=== PATIENT | female | born 1960 | race Caucasian/White ===

== ENCOUNTER 2018-01-15 21:24 | Inpatient (IN) | payer BC ==
[2018-01-15] MEDS ORDERED: TORAdol 30 mg Injection IV ONE (22:03)
[2018-01-15] MEDS ORDERED: Zofran 4 MG/2 ML VIAL IV ONE (22:03)
[2018-01-15] MEDS ORDERED: Zofran 4 MG/2 ML VIAL ONE (22:08)
[2018-01-15] MEDS ORDERED: TORAdol 30 mg Injection ONE (22:08)
--- NOTE | 2018-01-15 22:09 | ERPHSYRPT ---
- History of Present Illness Time Seen by Provider: 01/15/18 22:00 Historian: patient Exam Limitations: no limitations Patient Subjective Stated Complaint: pt is alert and oriented. pt is ambulatory with steady gait. pt has been having abd pain since 01/11/18. pt states that it was just a general right sided ache at that time and has since gotten worse. bowel sounds present x4. abd is soft and tender to touch in the RUQ. pt states having some right sided flank pain. Triage Nursing Assessment: see above Physician History: 57 y/o female comes to the ER with complaints of epigastric and RUQ abdominal pain since Tuesday. Pt describes the pain as sharp, constant, 5/10 and pt has not taken any pain meds. Pt admits to dry heaving but no vomiting, fever, chills , constipation, diarrhea or urinary symptoms. Pt admits to low appetite. Pt has had her gall bladder taken out. Timing/Duration: day(s) Activities at Onset: none Quality: sharpness Abdominal Pain Onset Location: RUQ, epigastric Pain Radiation: no radiation Severity of Pain-Max: moderate Severity of Pain-Current: moderate Modifying Factors: Improves With: nothing Associated Symptoms: loss of appetite, nausea Previous symptoms: no prior history Allergies/Adverse Reactions: ibuprofen Allergy (Mild, Verified 01/30/13 15:19) Penicillins Allergy (Mild, Verified 01/30/13 15:19) Home Medications: Citalopram Hydrobromide 20 mg* [ceLEXa 20 MG] 20 mg PO DAILY 01/15/18 [ History] Omeprazole [Prilosec] 20 mg pe PO DAILY 01/15/18 [History] Simvastatin 20 mg PO DAILY 01/15/18 [History] Hx Tetanus, Diphtheria Vaccination/Date Given: Yes Hx Influenza Vaccination/Date Given: Yes Hx Pneumococcal Vaccination/Date Given: No Immunizations Up to Date: Yes - Review of Systems Constitutional: No Fever, No Chills Eyes: No Symptoms Ears, Nose, & Throat: No Symptoms Respiratory: No Cough, No Dyspnea Cardiac: No Chest Pain, No Edema, No Syncope Abdominal/Gastrointestinal: Abdominal Pain, Nausea, No Vomiting, No Diarrhea Genitourinary Symptoms: No Dysuria, No Frequency, No Hematuria Musculoskeletal: No Back Pain, No Neck Pain Skin: No Rash Neurological: No Dizziness, No Focal Weakness, No Sensory Changes Psychological: No Symptoms Endocrine: No Symptoms All Other Systems: Reviewed and Negative - Past Medical History Pertinent Past Medical History: Yes Neurological History: No Pertinent History ENT History: No Pertinent History Cardiac History: No Pertinent History Respiratory History: No Pertinent History Endocrine Medical History: No Pertinent History Musculoskeletal History: No Pertinent History GI Medical History: Pancreatitis History: No Pertinent History Psycho-Social History: Anxiety Female Reproductive Disorders: No Pertinent History Other Medical History: chronic back pain - Past Surgical History Past Surgical History: Yes Neuro Surgical History: No Pertinent History Cardiac: No Pertinent History Respiratory: No Pertinent History Gastrointestinal: Cholecystectomy Genitourinary: No Pertinent History Female Surgical History: Tubal Ligation Other Surgical History: sinus surgery - Social History Smoking Status: Current every day smoker How long have you smoked: 1 year Exposure to second hand smoke: No Drug Use: none Patient Lives Alone: No - Female History Hx Now: No - Nursing Vital Signs Nursing Vital Signs: Initial Vital Signs Temperature 99.5 F 01/15/18 21:25 Pulse Rate 81 01/15/18 21:25 Respiratory Rate 16 01/15/18 21:25 Blood Pressure 144/78 01/15/18 21:25 O2 Sat by Pulse Oximetry 98 01/15/18 21:25 Pain Scale Pain Intensity 5 - Physical Exam General Appearance: mild distress, alert Eye Exam: PERRL/EOMI, eyes nml inspection Ears, Nose, Throat Exam: normal ENT inspection, pharynx normal, moist mucous membranes Neck Exam: normal inspection, non-tender, supple, full range of motion Respiratory Exam: normal breath sounds, lungs clear, No respiratory distress Cardiovascular Exam: regular rate/rhythm, normal heart sounds Gastrointestinal/Abdomen Exam: soft, normal bowel sounds, tenderness, No mass Back Exam: normal inspection, normal range of motion, No CVA tenderness, No vertebral tenderness Extremity Exam: normal inspection, normal range of motion, pelvis stable Neurologic Exam: alert, oriented x 3, cooperative, normal mood/affect, nml cerebellar function, sensation nml, No motor deficits Skin Exam: normal color, warm, dry SpO2: 98 Oxygen Delivery: Room Air - Course Nursing assessment & vital signs reviewed: Yes Ordered Tests: Active Orders 24 hr Category Date Time Status IV Insertion STAT Care 01/15/18 22:03 Active NPO (ED) STAT Care 01/15/18 22:03 Active ABDOMEN AND PELVIS W CONTRAST [CT] Stat Exams 01/15/18 22:03 Taken AMYLASE Stat Lab 01/15/18 22:20 Completed BLOOD CULTURE Stat Lab 01/16/18 Ordered CBC W DIFF Stat Lab 01/15/18 22:20 Completed CMP Stat Lab 01/15/18 22:20 Completed LIPASE Stat Lab 01/15/18 22:20 Completed Lactic Acid Stat Lab 01/15/18 22:10 Completed UA W/RFX UR CULTURE Stat Lab 01/15/18 22:03 Uncollected Medication Summary Discontinued Medications Generic Name Dose Route Start Last Admin Trade Name Freq PRN Reason Stop Dose Admin Sodium Chloride 1,000 mls @ 999 mls/hr 01/15/18 22:54 01/15/18 23:03 Sodium Chloride 0.9% 1000 Ml IV 01/15/18 23:54 999 mls/hr .Q1H1M STA Administration Sodium Chloride Confirm 01/15/18 22:58 Sodium Chloride 0.9% 1000 Ml Administered 01/15/18 22:59 Dose 1,000 mls @ ud .ROUTE .STK-MED ONE Ketorolac Tromethamine 30 mg 01/15/18 22:03 01/15/18 22:17 Toradol 30 Mg Injection IV 01/15/18 22:04 30 mg STAT ONE Administration Ketorolac Tromethamine Confirm 01/15/18 22:08 Toradol 30 Mg Injection Administered 01/15/18 22:09 Dose 30 mg .ROUTE .STK-MED ONE Ondansetron HCl 4 mg 01/15/18 22:03 01/15/18 22:17 Zofran 4 Mg/2 Ml Vial IV 01/15/18 22:04 4 mg STAT ONE Administration Ondansetron HCl Confirm 01/15/18 22:08 Zofran 4 Mg/2 Ml Vial Administered 01/15/18 22:09 Dose 4 mg .ROUTE .STK-MED ONE Lab/Rad Data: Laboratory Result Diagrams 01/15/18 22:20 01/15/18 22:20 Laboratory Results 01/15/18 01/15/18 01/15/18 Range/Units 22:20 22:20 22:10 WBC 18.4 H (4.0-10.5) K/mm3 RBC 4.99 (4.1-5.4) M/mm3 Hgb 15.5 (12.0-16.0) gm/dl Hct 45.5 (35-47) % MCV 91.2 (78-100) fl MCH 31.1 (26-32) pg MCHC 34.1 (32-36) g/dl RDW 14.1 H (11.5-14.0) % Plt Count 255 (150-450) K/mm3 MPV 11.5 H (6-9.5) fl Gran % 78.1 H (36.0-66.0) % Eos # (Auto) 0.22 (0-0.5) Absolute Lymphs (auto) 2.59 (1.0-4.6) Absolute Monos (auto) 1.16 (0.0-1.3) Lymphocytes % 14.1 L (24.0-44.0) % Monocytes % 6.3 (0.0-12.0) % Eosinophils % 1.2 (0.00-5.0) % Basophils % 0.3 (0.0-0.4) % Absolute Granulocytes 14.33 H (1.4-6.9) Basophils # 0.06 (0-0.4) Sodium 139 (137-145) mmol/L Potassium 3.7 (3.5-5.1) mmol/L Chloride 105 (98-107) mmol/L Carbon Dioxide 23 (22-30) mmol/L Anion Gap 13.9 (5-15) MEQ/L BUN 6 L (7-17) mg/dL Creatinine 0.70 (0.52-1.04) mg/dL Estimated GFR > 60.0 ML/MIN Glucose 111 H (74-106) mg/dL Lactic Acid 0.8 (0.4-2.0) Calcium 9.3 (8.4-10.2) mg/dL Total Bilirubin 0.80 (0.2-1.3) mg/dL AST 21 (14-36) U/L ALT 24 (0-35) U/L Alkaline Phosphatase 113 (38-126) U/L Serum Total Protein 7.4 (6.3-8.2) g/dL Albumin 4.3 (3.5-5.0) g/dL Amylase 165 H (30-110) U/L Lipase 1060 H (23-300) U/L - Progress Progress: improved Progress Note: 01/16/18 00:31 The patient feels better after receiving NS fluids, zofran and toradol. The lipase is over [address] scan abd/pelvis shows findings consistent with acute pancreatitis as well as features of a possible colitis. There is an indistinct 1.9 cm area of low attenuation in the pancreatic head that will need further imaging to R/O malignancy. Pt has a white count of 18,000 and will receive a dose of zosyn. Pt has been accepted by Dr De Jesus for acute pancreatitis and colitis. - Departure Time of Disposition: 00:34 Departure Disposition: In-patient Admission Clinical Impression: Colitis Pancreatitis Qualifiers: Chronicity: acute Pancreatitis type: unspecified pancreatitis type Acute pancreatitis complication: unspecified Qualified Code(s): K85.90 - Acute pancreatitis without necrosis or infection, unspecified Condition: Fair Critical Care Time: No Referrals: SHAMEKA CARVALHO MD [Primary Care Provider] -
[2018-01-15 22:33] LABS: BASOPHIL % 0.3 % (0.0-0.4); Basophil (Absolute #) 0.06 (0-0.4); Eosinophil % 1.2 % (0.00-5.0); Eosinophil (Absolute #) 0.22 (0-0.5); Granulocyte Absolute (ANC) 14.33 (1.4-6.9); Granulocytes % 78.1 % (36.0-66.0); Hematocrit 45.5 % (35-47); Hemoglobin 15.5 gm/dl (12.0-16.0); Lymphocyte (Absolute #) 2.59 (1.0-4.6); Lymphocytes % 14.1 % (24.0-44.0); Mean Cell Volume 91.2 fl (78-100); Mean Corpuscular Hemoglobin 31.1 pg (26-32); Mean Corpuscular Hgb Concent. 34.1 g/dl (32-36); Mean Platelet Volume 11.5 fl (6-9.5); Monocyte (Absolute #) 1.16 (0.0-1.3); Monocytes % 6.3 % (0.0-12.0); Platelet Count 255 K/mm3 (150-450); Red Blood Count 4.99 M/mm3 (4.1-5.4); Red Cell Distribution Width 14.1 % (11.5-14.0); White Blood Count 18.4 K/mm3 (4.0-10.5)
[2018-01-15 22:47] LABS: ALBUMIN 4.3 g/dL (3.5-5.0); ALKALINE PHOSPHATASE 113 U/L (38-126); AMYLASE 165 U/L (30-110); ANION GAP 13.9 MEQ/L (5-15); BLOOD UREA NITROGEN 6 mg/dL (7-17); CHLORIDE 105 mmol/L (98-107); Calcium 9.3 mg/dL (8.4-10.2); Carbon Dioxide 23 mmol/L (22-30); Glucose 111 mg/dL (74-106); LIPASE 1060 U/L (23-300); Potassium 3.7 mmol/L (3.5-5.1); SGOT/AST 21 U/L (14-36); SGPT/ALT 24 U/L (0-35); SODIUM 139 mmol/L (137-145); Total Protein 7.4 g/dL (6.3-8.2)
[2018-01-15] MEDS ORDERED: Sodium Chloride 0.9% 1000 ML 1,000 ML IV STA (22:54)
[2018-01-15] MEDS ORDERED: Sodium Chloride 0.9% 1000 ML 1,000 ML ONE (22:58)
[2018-01-16] MEDS ORDERED: Zosyn 3.375GM/100 Ml D5W 3.375 GM/100 ML IVPB IV STA (00:30)
[2018-01-16] MEDS: Sodium Chloride 0.9% 1000 ML 1,000 ML IV SCH ×3 (01:23→23:08)
[2018-01-16 02:27] LABS: Appearance CLEAR (CLEAR); Bilirubin NEGATIVE (NEGATIVE); Blood NEGATIVE Ery/ul (0-5); Glucose NEGATIVE (NEGATIVE); Ketones NEGATIVE (NEGATIVE); Leukocyte Esterase NEGATIVE (NEGATIVE); Nitrite NEGATIVE (NEGATIVE); Protein,Urine Dip NEGATIVE (Negative); Specific Gravity 1.005 (1.005-1.025); Urobilinogen NORMAL mg/dL (0-1)
[2018-01-16] MEDS: MORPHINE SULFATE 4 MG INJ IV PRN ×6 (03:21→23:55)
[2018-01-16] MEDS: Zofran 4 MG/2 ML VIAL IV PRN ×2 (03:21→20:03)
[2018-01-16 06:36] LABS: BASOPHIL % 0.2 % (0.0-0.4); Basophil (Absolute #) 0.03 (0-0.4); Eosinophil % 1.4 % (0.00-5.0); Eosinophil (Absolute #) 0.25 (0-0.5); Hematocrit 41.4 % (35-47); Hemoglobin 13.7 gm/dl (12.0-16.0); Lymphocytes % 13.3 % (24.0-44.0); Mean Cell Volume 92.8 fl (78-100); Mean Corpuscular Hemoglobin 30.7 pg (26-32); Mean Corpuscular Hgb Concent. 33.1 g/dl (32-36); Mean Platelet Volume 12.1 fl (6-9.5); Monocyte (Absolute #) 1.29 (0.0-1.3); Monocytes % 7.1 % (0.0-12.0); Platelet Count 232 K/mm3 (150-450); Red Blood Count 4.46 M/mm3 (4.1-5.4); White Blood Count 18.1 K/mm3 (4.0-10.5)
[2018-01-16 06:43] LABS: ALBUMIN 3.6 g/dL (3.5-5.0); ALKALINE PHOSPHATASE 103 U/L (38-126); ANION GAP 12.1 MEQ/L (5-15); BLOOD UREA NITROGEN 6 mg/dL (7-17); CHLORIDE 107 mmol/L (98-107); Calcium 8.5 mg/dL (8.4-10.2); Carbon Dioxide 23 mmol/L (22-30); Creatinine 1 0.68 mg/dL (0.52-1.04); Glucose 113 mg/dL (74-106); Potassium 3.6 mmol/L (3.5-5.1); SGOT/AST 69 U/L (14-36); SGPT/ALT 35 U/L (0-35); SODIUM 139 mmol/L (137-145); Total Protein 6.3 g/dL (6.3-8.2)
[2018-01-16] MEDS: Zosyn 3.375GM/100 Ml D5W 3.375 GM/100 ML IVPB IV SCH ×4 (07:29→23:09)
[2018-01-16 08:19] LABS: AMYLASE 141 U/L (30-110); LIPASE 882 U/L (23-300)
--- NOTE | 2018-01-16 08:46 | PCM.HP ---
History of Present Illness - Chief Complaint Chief Complaint: acute pancreatitis, colitis History of Present Illness: is a 57 year old female who reports worsening right upper quad abd pain for the last 5 days, became sharp and severe yesterday. no vomiting, diarrhea, fever or constipation. feeling slightly better this morning, denies alcohol use, hx cholecystectomy in the past. - Review of Systems Constitutional: No Fever, No Chills Respiratory: No Cough, No Short Of Breath Cardiac: No Chest Pain, No Edema, No Syncope Abdominal/Gastrointestinal: Abdominal Pain, No Nausea, No Vomiting, No Diarrhea , No Constipation Genitourinary Symptoms: No Dysuria Skin: No Rash Medications & Allergies Home Medications: Home Medication List Citalopram Hydrobromide 20 mg* [ceLEXa 20 MG] 20 mg PO DAILY 01/15/18 [ History Confirmed 01/16/18] Omeprazole [Prilosec] 20 mg pe PO DAILY 01/15/18 [History Confirmed 01/16/18] Simvastatin 20 mg PO DAILY 01/15/18 [History Confirmed 01/16/18] Allergies/Adverse Reactions: Allergies Allergy/AdvReac Type Severity Reaction Status Date / Time ibuprofen Allergy Mild Verified 01/16/18 01:09 Penicillins Allergy Mild Rash Verified 01/16/18 06:28 - Past Medical History Past Medical History: Yes Neurological History: No Pertinent History ENT History: No Pertinent History Cardiac History: No Pertinent History Respiratory History: No Pertinent History Endocrine Medical History: No Pertinent History Musculoskelatal History: No Pertinent History GI Medical History: Pancreatitis History: No Pertinent History Pyscho-Social History: Anxiety Reproductive Disorders: No Pertinent History Comment: chronic back pain - Female History Are you now?: No - Past Surgical History Past Surgical History: Yes Neuro Surgical History: No Pertinent History Cardiac History: No Pertinent History Respiratory Surgery: No Pertinent History GI Surgical History: Cholecystectomy Genitourinary Surgical Hx: No Pertinent History Musculskeletal Surgical Hx: No Pertinent History Female Surgical History: Tubal Ligation Other Surgical History: sinus surgery - Social History Smoking Status: Current every day smoker How long have you smoked: 1 year Exposure to second hand smoke: No Alcohol: None Drug Use: none - Physical Exam Vital Signs: Vital Signs - 24 hr Temp Pulse Resp BP Pulse Ox 01/16/18 07:14 98.4 F 82 16 144/69 94 L 01/16/18 07:12 97.8 F 78 16 134/79 99 01/16/18 04:02 98.5 F 76 18 125/60 97 01/16/18 01:13 98.7 F 76 16 131/72 98 01/16/18 00:34 98 01/16/18 00:07 76 121/66 98 01/15/18 22:53 78 136/86 93 L 01/15/18 22:26 73 136/86 99 01/15/18 21:25 99.5 F 81 16 144/78 98 General Appearance: no apparent distress, alert Respiratory Exam: normal breath sounds, lungs clear, No respiratory distress Cardiovascular Exam: regular rate/rhythm, normal heart sounds, normal peripheral pulses Gastrointestinal/Abdomen Exam: soft, tenderness (epigastrium), No distention, No mass, No guarding Extremity Exam: normal inspection, normal range of motion, pelvis stable Skin Exam: normal color, warm, dry, No rash Results - Labs Lab/Micro Results: Lab Results-Last 24 Hours 01/15/18 01/15/18 01/15/18 Range/Units 01:00 22:10 22:20 WBC 18.4 H (4.0-10.5) K/mm3 RBC 4.99 (4.1-5.4) M/mm3 Hgb 15.5 (12.0-16.0) gm/dl Hct 45.5 (35-47) % MCV 91.2 (78-100) fl MCH 31.1 (26-32) pg MCHC 34.1 (32-36) g/dl RDW 14.1 H (11.5-14.0) % Plt Count 255 (150-450) K/mm3 MPV 11.5 H (6-9.5) fl Gran % 78.1 H (36.0-66.0) % Eos # (Auto) 0.22 (0-0.5) Absolute Lymphs (auto) 2.59 (1.0-4.6) Absolute Monos (auto) 1.16 (0.0-1.3) Lymphocytes % 14.1 L (24.0-44.0) % Monocytes % 6.3 (0.0-12.0) % Eosinophils % 1.2 (0.00-5.0) % Basophils % 0.3 (0.0-0.4) % Absolute Granulocytes 14.33 H (1.4-6.9) Basophils # 0.06 (0-0.4) Sodium (137-145) mmol/L Potassium (3.5-5.1) mmol/L Chloride (98-107) mmol/L Carbon Dioxide (22-30) mmol/L Anion Gap (5-15) MEQ/L BUN (7-17) mg/dL Creatinine (0.52-1.04) mg/dL Estimated GFR ML/MIN Glucose (74-106) mg/dL Lactic Acid 0.8 (0.4-2.0) Calcium (8.4-10.2) mg/dL Total Bilirubin (0.2-1.3) mg/dL AST (14-36) U/L ALT (0-35) U/L Alkaline Phosphatase (38-126) U/L Serum Total Protein (6.3-8.2) g/dL Albumin (3.5-5.0) g/dL Amylase (30-110) U/L Lipase (23-300) U/L Ur Collection Type CLEAN CATCH Urine Color YELLOW (YELLOW) Urine Appearance CLEAR (CLEAR) Urine pH 8.0 (5-6) Ur Specific [place] 1.005 (1.005-1.025) Urine Protein NEGATIVE (Negative) Urine Ketones NEGATIVE (NEGATIVE) Urine Blood NEGATIVE (0-5) Dave/ul Urine Nitrite NEGATIVE (NEGATIVE) Urine Bilirubin NEGATIVE (NEGATIVE) Urine Urobilinogen NORMAL (0-1) mg/dL Ur Leukocyte Esterase NEGATIVE (NEGATIVE) Urine Culture Reflexed NO (NO) Urine Glucose NEGATIVE (NEGATIVE) mg/dL Specimen Received 01/16/18 0100 01/15/18 01/16/18 01/16/18 Range/Units 22:20 05:00 05:37 WBC 18.1 H (4.0-10.5) K/mm3 RBC 4.46 (4.1-5.4) M/mm3 Hgb 13.7 (12.0-16.0) gm/dl Hct 41.4 (35-47) % MCV 92.8 (78-100) fl MCH 30.7 (26-32) pg MCHC 33.1 (32-36) g/dl RDW 14.0 (11.5-14.0) % Plt Count 232 (150-450) K/mm3 MPV 12.1 H (6-9.5) fl Gran % 78.0 H (36.0-66.0) % Eos # (Auto) 0.25 (0-0.5) Absolute Lymphs (auto) 2.40 (1.0-4.6) Absolute Monos (auto) 1.29 (0.0-1.3) Lymphocytes % 13.3 L (24.0-44.0) % Monocytes % 7.1 (0.0-12.0) % Eosinophils % 1.4 (0.00-5.0) % Basophils % 0.2 (0.0-0.4) % Absolute Granulocytes 14.10 H (1.4-6.9) Basophils # 0.03 (0-0.4) Sodium 139 (137-145) mmol/L Potassium 3.7 (3.5-5.1) mmol/L Chloride 105 (98-107) mmol/L Carbon Dioxide 23 (22-30) mmol/L Anion Gap 13.9 (5-15) MEQ/L BUN 6 L (7-17) mg/dL Creatinine 0.70 (0.52-1.04) mg/dL Estimated GFR > 60.0 ML/MIN Glucose 111 H (74-106) mg/dL Lactic Acid (0.4-2.0) Calcium 9.3 (8.4-10.2) mg/dL Total Bilirubin 0.80 (0.2-1.3) mg/dL AST 21 (14-36) U/L ALT 24 (0-35) U/L Alkaline Phosphatase 113 (38-126) U/L Serum Total Protein 7.4 (6.3-8.2) g/dL Albumin 4.3 (3.5-5.0) g/dL Amylase 165 H 141 H (30-110) U/L Lipase 1060 H 882 H (23-300) U/L Ur Collection Type Urine Color (YELLOW) Urine Appearance (CLEAR) Urine pH (5-6) Ur Specific [place] (1.005-1.025) Urine Protein (Negative) Urine Ketones (NEGATIVE) Urine Blood (0-5) Dave/ul Urine Nitrite (NEGATIVE) Urine Bilirubin (NEGATIVE) Urine Urobilinogen (0-1) mg/dL Ur Leukocyte Esterase (NEGATIVE) Urine Culture Reflexed (NO) Urine Glucose (NEGATIVE) mg/dL Specimen Received 01/16/18 Range/Units 05:37 WBC (4.0-10.5) K/mm3 RBC (4.1-5.4) M/mm3 Hgb (12.0-16.0) gm/dl Hct (35-47) % MCV (78-100) fl MCH (26-32) pg MCHC (32-36) g/dl RDW (11.5-14.0) % Plt Count (150-450) K/mm3 MPV (6-9.5) fl Gran % (36.0-66.0) % Eos # (Auto) (0-0.5) Absolute Lymphs (auto) (1.0-4.6) Absolute Monos (auto) (0.0-1.3) Lymphocytes % (24.0-44.0) % Monocytes % (0.0-12.0) % Eosinophils % (0.00-5.0) % Basophils % (0.0-0.4) % Absolute Granulocytes (1.4-6.9) Basophils # (0-0.4) Sodium 139 (137-145) mmol/L Potassium 3.6 (3.5-5.1) mmol/L Chloride 107 (98-107) mmol/L Carbon Dioxide 23 (22-30) mmol/L Anion Gap 12.1 (5-15) MEQ/L BUN 6 L (7-17) mg/dL Creatinine 0.68 (0.52-1.04) mg/dL Estimated GFR > 60.0 ML/MIN Glucose 113 H (74-106) mg/dL Lactic Acid (0.4-2.0) Calcium 8.5 (8.4-10.2) mg/dL Total Bilirubin 1.50 H (0.2-1.3) mg/dL AST 69 H (14-36) U/L ALT 35 (0-35) U/L Alkaline Phosphatase 103 (38-126) U/L Serum Total Protein 6.3 (6.3-8.2) g/dL Albumin 3.6 (3.5-5.0) g/dL Amylase (30-110) U/L Lipase (23-300) U/L Ur Collection Type Urine Color (YELLOW) Urine Appearance (CLEAR) Urine pH (5-6) Ur Specific [place] (1.005-1.025) Urine Protein (Negative) Urine Ketones (NEGATIVE) Urine Blood (0-5) Dave/ul Urine Nitrite (NEGATIVE) Urine Bilirubin (NEGATIVE) Urine Urobilinogen (0-1) mg/dL Ur Leukocyte Esterase (NEGATIVE) Urine Culture Reflexed (NO) Urine Glucose (NEGATIVE) mg/dL Specimen Received - Radiology Impressions Radiology Exams & Impressions: Radiology Procedures Category Date Time Status ABDOMEN AND PELVIS W CONTRAST [CT] Stat Exams 01/15/18 22:03 Taken Assessment/Plan (1) Acute pancreatitis Current Visit: Yes Status: Acute Assessment & Plan: will need further imaging and f/u on indistince pancreas head lesion, radiology overread pending. Code(s): K85.90 - ACUTE PANCREATITIS WITHOUT NECROSIS OR INFECTION, UNSP (2) Colitis Current Visit: Yes Status: Acute Onset Date: ~01/16/18 Assessment & Plan: continue zosyn and bowel rest. Code(s): K52.9 - NONINFECTIVE GASTROENTERITIS AND COLITIS, UNSPECIFIED
[2018-01-16] MEDS ORDERED: OMEPRAZOLE 20 MG PO SCH (10:00)
[2018-01-16] MEDS: ceLEXa 20 MG PO SCH (10:43)
[2018-01-16] MEDS: Protonix 40MG Tablet PO SCH (10:44)
--- NOTE | 2018-01-16 10:57 | XRAY ---
Exam: CT of the abdomen and pelvis with IV contrast from 01/15/2018. CTDI: 21.71 Comparison: CT of the abdomen and pelvis without IV contrast from 01/30/2013. Indication: 57-year-old female with right flank pain and right upper quadrant abdominal pain, elevated white blood cell count. Technique: Post-IV contrast axial images were obtained through the abdomen and pelvis during and following 80 ML's IV injection of Isovue-370 contrast material. Reconstructed coronal and sagittal images were created and reviewed. Delayed axial images were obtained through the abdomen and pelvis as well. Findings: The lung bases reveal a small amount of bibasilar posterior dependent atelectasis. I also note some minimal curvilinear scarring or atelectasis at the anterior medial and mid lateral right lung base and anterior lateral left lung base. No pleural fluid is seen. Prior minimal hiatal hernia is better seen on the previous study than the current study. The liver appears normal. No hepatic mass or intrahepatic or duct distention is seen. Surgical clips consistent with prior cholecystectomy are seen within the right upper quadrant. The spleen is of normal size and reveals no mass. The pancreas is remarkable for some subtle peripancreatic edema, primarily within the head and proximal body of the pancreas. This may be due to pancreatitis. Correlate clinically. There is a question of an approximately 1.6 cm x 1.0 cm ill-defined low-attenuation density within the medial aspect of the pancreatic head on axial image #32 through #34 of series #2 of unclear significance. This could be due to inflammation from the pancreatitis or be related to a small pseudocyst or cystic neoplasm. Follow-up dedicated pancreas CT with IV contrast using thin sections once the patient's pancreatitis has resolved may be helpful. No pancreatic duct distention or calcifications are seen. The adrenal glands appear unremarkable. There is a small cyst within the upper pole of the left kidney. No renal mass or hydronephrosis is seen. No definite renal calculi are seen. Small bilateral extrarenal pelves are seen. The kidneys function well on delay images. Portions of the ureters are well-seen and appear unremarkable. No abnormality of the urinary bladder is seen. The abdominal aorta is of normal diameter. No abnormal retroperitoneal lymphadenopathy is seen. No free intraperitoneal air is seen. The anterior abdominal wall appears intact. The appendix appears unremarkable within the right lower quadrant. I see no inflammatory changes within the right lower quadrant. There is no evidence of bowel obstruction or significant bowel wall thickening. There may be a few tiny diverticula within the sigmoid colon. The urinary bladder appears grossly unremarkable. Uterus is anteflexed and appears normal. No enlarged pelvic lymph nodes or free fluid is seen. The skeleton reveals no acute fracture or aggressive bone lesion. There is mild degenerative disc disease at L5-S1. I also note mild degenerative disc disease at T8-T9 and T9-T10. Small anterior vertebral endplate spurs are seen within the lower thoracic spine. There may be a small vertebral hemangioma within left aspect of L1 representing no change. Impression: 1. Mild peripancreatic edema/inflammation is seen about the head and proximal body of the pancreas. Correlate clinically regarding pancreatitis. In addition, there is a question of a small ill-defined 1.6 cm x 1.0 cm low-attenuation density within the medial aspect of the pancreatic and. A small cystic nodule at this site is difficult to exclude. Correlation with a dedicated pancreas CT study with IV contrast using thin sections may be helpful once the patient's pancreatitis/inflammation has completely resolved. 2. Minimal hiatal hernia, status post cholecystectomy, small upper pole left renal cyst, and minimal sigmoid colon diverticulosis are seen. 3. No other acute intra-abdominal or pelvic process is seen. I see no findings to suggest acute appendicitis within the right lower quadrant. I see no renal calculi, obstructive uropathy, or renal parenchymal changes to suggest focal pyelonephritis. 4. Skeletal findings, as discussed above.
[2018-01-17] MEDS: Zofran 4 MG/2 ML VIAL IV PRN (03:58)
[2018-01-17] MEDS: MORPHINE SULFATE 4 MG INJ IV PRN ×2 (03:59→08:00)
[2018-01-17] MEDS: Zosyn 3.375GM/100 Ml D5W 3.375 GM/100 ML IVPB IV SCH ×4 (05:27→23:39)
--- NOTE | 2018-01-17 08:52 | PCM.NOTE ---
Date and Time: 01/17/18 0847 Subjective Assessment: She had a Tmax of 100.2 overnight. Still having abd pain. Has not been passing gas. Last BM 2d ago. Would like some clear liquids. - Review of Systems Abdominal/Gastrointestinal: Abdominal Pain, Nausea, No Vomiting Objective Exam General Appearance: mild distress, alert Neurologic Exam: oriented x 3, cooperative Skin Exam: normal color, warm, dry, No rash Eye Exam: eyes nml inspection Respiratory Exam: normal breath sounds, lungs clear, No crackles/rales, No rhonchi, No wheezing Cardiovascular Exam: regular rate/rhythm, normal heart sounds, No murmur Gastrointestinal/Abdomen Exam: soft, normal bowel sounds, tenderness (epigastrum , RUQ) Extremity Exam: No pedal edema, No swelling OBJECTIVE DATA Vital Signs: Vital Signs - 24 hr Temp Pulse Resp BP Pulse Ox 01/17/18 06:56 99 F 77 18 115/56 96 01/17/18 04:00 99.7 F 82 20 123/60 95 01/17/18 00:00 100.2 F 78 16 125/60 96 01/16/18 20:00 100 F 74 16 132/67 97 01/16/18 16:00 98.4 F 75 16 127/56 96 01/16/18 12:00 16 01/16/18 11:19 98.6 F 72 16 120/58 95 Pain Assessment - Last Documented Pain Intensity 4 Pain Scale Used 0-10 Pain Scale Intake and Output: Intake & Output 01/14/18 01/15/18 01/16/18 01/17/18 11:59 11:59 11:59 11:59 Intake Total 164 1462 Output Total 600 1999 Balance -436 -538 Weight 85.6 kg Radiology Exams: Radiology Procedures Category Date Time Status ABDOMEN AND PELVIS W CONTRAST [CT] Stat Exams 01/15/18 22:03 Completed Assessment/Plan (1) Acute pancreatitis Current Visit: Yes Status: Acute Qualifiers: Pancreatitis type: unspecified pancreatitis type Acute pancreatitis complication: unspecified Qualified Code(s): K85.90 - Acute pancreatitis without necrosis or infection, unspecified Assessment & Plan: With question of lesion on pancreas; over read pending. Labs imiproved today. Will change her morphine to [employer]. Increase frequency of zofran. Since she is thirsty, will go ahead with CLD as tolerated. She has not been having flatulence of BMs, so would have high index of suspicion for ileus as well (I did find her to have bowel sounds). Code(s): K85.90 - ACUTE PANCREATITIS WITHOUT NECROSIS OR INFECTION, UNSP (2) Elevated WBC count Current Visit: Yes Status: Acute Onset Date: ~01/16/18 Qualifiers: Leukocytosis type: unspecified Qualified Code(s): D72.829 - Elevated white blood cell count, unspecified Code(s): D72.829 - ELEVATED WHITE BLOOD CELL COUNT, UNSPECIFIED
[2018-01-17] MEDS ORDERED: Morphine PCA 1 MG/ML 30 ML IV PRN (08:53)
[2018-01-17] MEDS ORDERED: Phenergan 25 MG INJ IV PRN (08:54)
[2018-01-17] MEDS ORDERED: Sodium Chloride 0.9% 1000 ML 1,000 ML IV STA (08:55)
[2018-01-17] MEDS: ceLEXa 20 MG PO SCH (09:08)
[2018-01-17] MEDS: Protonix 40MG Tablet PO SCH (09:08)
[2018-01-17] MEDS: Sodium Chloride 0.9% 1000 ML 1,000 ML IV SCH ×2 (10:03→21:01)
[2018-01-18 05:42] LABS: BASOPHIL % 0.3 % (0.0-0.4); Basophil (Absolute #) 0.04 (0-0.4); Eosinophil % 2.4 % (0.00-5.0); Granulocytes % 69.6 % (36.0-66.0); Hematocrit 36.5 % (35-47); Hemoglobin 11.9 gm/dl (12.0-16.0); Lymphocyte (Absolute #) 2.22 (1.0-4.6); Lymphocytes % 17.9 % (24.0-44.0); Mean Cell Volume 93.8 fl (78-100); Mean Corpuscular Hgb Concent. 32.6 g/dl (32-36); Mean Platelet Volume 12.1 fl (6-9.5); Monocyte (Absolute #) 1.21 (0.0-1.3); Monocytes % 9.8 % (0.0-12.0); Platelet Count 206 K/mm3 (150-450); Red Blood Count 3.89 M/mm3 (4.1-5.4); Red Cell Distribution Width 13.7 % (11.5-14.0); White Blood Count 12.4 K/mm3 (4.0-10.5)
[2018-01-18 05:51] LABS: Mean Corpuscular Hemoglobin 30.5 pg (26-32)
[2018-01-18] MEDS: Zosyn 3.375GM/100 Ml D5W 3.375 GM/100 ML IVPB IV SCH ×2 (05:57→11:50)
[2018-01-18 06:14] LABS: ALBUMIN 3.3 g/dL (3.5-5.0); ALKALINE PHOSPHATASE 130 U/L (38-126); AMYLASE 31 U/L (30-110); ANION GAP 11.3 MEQ/L (5-15); BLOOD UREA NITROGEN 7 mg/dL (7-17); CHLORIDE 104 mmol/L (98-107); Calcium 8.6 mg/dL (8.4-10.2); Carbon Dioxide 23 mmol/L (22-30); Glucose 78 mg/dL (74-106); LIPASE 65 U/L (23-300); Potassium 3.6 mmol/L (3.5-5.1); SGOT/AST 45 U/L (14-36); SGPT/ALT 68 U/L (0-35); SODIUM 135 mmol/L (137-145); Total Protein 6.1 g/dL (6.3-8.2)
[2018-01-18] MEDS: Sodium Chloride 0.9% 1000 ML 1,000 ML IV SCH (07:44)
[2018-01-18] MEDS: Protonix 40MG Tablet PO SCH (08:58)
[2018-01-18] MEDS: ceLEXa 20 MG PO SCH (08:58)
--- NOTE | 2018-01-18 10:29 | PCM.DS ---
Discharge Summary Date of Admission: 01/16/18 00:55 Admitting Physician: SHAMEKA CARVALHO Primary Care Provider: SHAMEKA CARVALHO Allergies Allergies ibuprofen Allergy (Mild, Verified 01/16/18 01:09) Penicillins Allergy (Mild, Verified 01/16/18 06:28) Rash Hospital Summary - Hospital Course Hospital Course: patient was admitted with nause and vomiting and abd pain, found to have acute colitis and was on zosyn but no symptoms of colitis, no diarrhea. doing well now , tolerating po and pain has resolved. - Vitals & Intake/Output Vital Signs: Vital Signs Temperature 98.8 F 01/18/18 07:13 Pulse Rate 76 01/18/18 07:13 Respiratory Rate 16 01/18/18 07:13 Blood Pressure 109/52 01/18/18 07:13 O2 Sat by Pulse Oximetry 98 01/18/18 09:11 Intake & Output: Intake & Output 01/15/18 01/16/18 01/17/18 01/18/18 11:59 11:59 11:59 11:59 Intake Total 164 1462 6139 Output Total 600 2000 2200 Balance -436 -538 3939 Weight 85.6 kg - Lab Result Diagrams: 01/18/18 05:10 01/18/18 05:10 Lab Results-Last 24 Hrs: Lab Results-Last 24 Hours 01/18/18 01/18/18 Range/Units 05:10 05:10 WBC 12.4 H (4.0-10.5) K/mm3 RBC 3.89 L (4.1-5.4) M/mm3 Hgb 11.9 L (12.0-16.0) gm/dl Hct 36.5 (35-47) % MCV 93.8 (78-100) fl MCH 30.5 (26-32) pg MCHC 32.6 (32-36) g/dl RDW 13.7 (11.5-14.0) % Plt Count 206 (150-450) K/mm3 MPV 12.1 H (6-9.5) fl Gran % 69.6 H (36.0-66.0) % Eos # (Auto) 0.30 (0-0.5) Absolute Lymphs (auto) 2.22 (1.0-4.6) Absolute Monos (auto) 1.21 (0.0-1.3) Lymphocytes % 17.9 L (24.0-44.0) % Monocytes % 9.8 (0.0-12.0) % Eosinophils % 2.4 (0.00-5.0) % Basophils % 0.3 (0.0-0.4) % Absolute Granulocytes 8.60 H (1.4-6.9) Basophils # 0.04 (0-0.4) Sodium 135 L (137-145) mmol/L Potassium 3.6 (3.5-5.1) mmol/L Chloride 104 (98-107) mmol/L Carbon Dioxide 23 (22-30) mmol/L Anion Gap 11.3 (5-15) MEQ/L BUN 7 (7-17) mg/dL Creatinine 0.60 (0.52-1.04) mg/dL Estimated GFR > 60.0 ML/MIN Glucose 78 (74-106) mg/dL Calcium 8.6 (8.4-10.2) mg/dL Total Bilirubin 1.20 (0.2-1.3) mg/dL AST 45 H (14-36) U/L ALT 68 H (0-35) U/L Alkaline Phosphatase 130 H (38-126) U/L Serum Total Protein 6.1 L (6.3-8.2) g/dL Albumin 3.3 L (3.5-5.0) g/dL Amylase 31 (30-110) U/L Lipase 65 (23-300) U/L Micro Results-Entire Visit: Microbiology 01/16/18 01:50 Blood Culture - Preliminary Blood NO GROWTH TO DATE - Procedures and Test Procedures and Tests throughout Hospitalization: Therapy Orders & Screens 01/16/18 01:32 Smoking Cessation Education ONCE Comment: Diagnosis: acute pancreatitis, colitis Smoking Status: Current every day smoker How long have you smoked: 1 year Approximately how many cigarettes per day: 15 If,Former Smoker,when did you quit: 15 YEARS Discharge Exam General Appearance: no apparent distress, alert Respiratory Exam: normal breath sounds, lungs clear, No respiratory distress Cardiovascular Exam: regular rate/rhythm Gastrointestinal/Abdomen Exam: soft, No tenderness, No mass Extremity Exam: normal inspection, normal range of motion Back Exam: normal inspection, normal range of motion, No CVA tenderness, No vertebral tenderness Final Diagnosis/Problem List - Final Discharge Diagnosis/Problem (1) Acute pancreatitis Current Visit: Yes Status: Acute (2) Colitis Current Visit: Yes Status: Acute Onset Date: ~01/16/18 - Discharge Disposition: Home, Self-Care Condition: Good Prescriptions: Continue Simvastatin 20 mg PO DAILY Omeprazole [Prilosec] 20 mg pe PO DAILY Citalopram Hydrobromide 20 mg* [ceLEXa 20 MG] 20 mg PO DAILY Follow up with: SHAMEKA CARVALHO MD [Primary Care Provider] - 1 Week
[2018-01-18 11:16] VITALS: BP 114/60; PULSE 69; O2SAT 96
== END 2018-01-18 13:25 | disposition home or self-care (01) | DRG 440 ==
LOC: ED 21:24 → MED SURG 01-16 00:55
PROVIDERS: ADMIT Family Medicine; ATTEND Family Medicine
DX: K85.90 Acute pancreatitis without necrosis or infection, unspecified (principal); K52.9 Noninfective gastroenteritis and colitis, unspecified; F41.9 Anxiety disorder, unspecified; Z72.0 Tobacco use; D72.829 Elevated white blood cell count, unspecified
CPT/HCPCS: 36000; 36415; 74177; 80053; 81002; 82150; 83605; 83690; 85025; 87040; 96360; 96365; 96374; 96375; 99285; J1885; J2270; J2405; J2543; A9270-GY

== ENCOUNTER 2018-03-23 06:02 | Day surgery (SDC) | payer BC ==
[2018-03-23] MEDS ORDERED: DIPRIVAN 200 MG/20 ML IV ONE (06:03)
[2018-03-23] MEDS ORDERED: Zofran 4 MG/2 ML VIAL IV ONE (06:03)
[2018-03-23] MEDS: Lactated Ringers 1,000 ML IV SCH (06:20)
[2018-03-23] MEDS ORDERED: Lactated Ringers 1,000 ML IV ONE (06:20)
[2018-03-23 08:06] VITALS: O2SAT 97
[2018-03-23 08:23] VITALS: BP 118/76; PULSE 71
--- NOTE | 2018-03-23 09:15 | OP ---
SURGERY DATE/TIME: 03/23/2018711 PREOPERATIVE DIAGNOSIS: Screening colonoscopy. POSTOPERATIVE DIAGNOSIS: Normal colon. PROCEDURE: Colonoscopy. SURGEON: Oli Dan M.D. ANESTHESIA: MAC by Flavio Spears CRNA. ESTIMATED BLOOD LOSS: None. SPECIMENS: None. DESCRIPTION OF PROCEDURE: After informed written consent was obtained, the patient was taken to the endoscopy suite. She underwent monitored anesthesia and a digital rectal exam showed normal sphincter tone and no internal lesions. The scope was inserted into the rectum and sequentially the entire colonic mucosa was traversed. Of note, the patient did have minimal amount of vomiting during the procedure which was suctioned by anesthesia and nursing staff. There were no signs of aspiration as she was in the left lateral decubitus position during the entirety of the procedure. The level of cecum was reached and verified with direct visualization of ileocecal valve. Upon withdrawal careful mucosal inspection revealed no gross abnormalities. There was a small amount of liquid stool in several areas throughout the colon but overall prep was noted to be fair. Prior to withdrawal retroflexion was performed and was within normal limits. The scope was removed and the patient was transferred to the recovery room in good condition.
== END 2018-03-23 08:46 | disposition home or self-care (01) ==
LOC: SDC 06:02
PROVIDERS: ATTEND Family Medicine
DX: Z12.11 Encounter for screening for malignant neoplasm of colon (principal)
CPT/HCPCS: J2405; J2704